=== PATIENT | female | born 1970 | race African-American/Black ===

== ENCOUNTER 2019-02-17 22:21 | Emergency (ER) | payer OTHER ==
[~2019-02-17] VITALS: Ht 160 cm; Wt 77.6 kg
[~2019-02-17 22:21] MED LIST: ALPHAGAN P10 ML OP; AMLODIPINE BESY10 MG PO; ANALGESIC325 MG PO; ASPIRIN; AZATHIOPRINE50 MG PO; BACTRIM DS TAB1 EACH PO; CLARITIN10 MG PO; MEDROLDOSEPACK PO; PREDNISONE 20 M20 MG PO; TRUSOPT OCUMETE10 ML OP; ZANTAC 150MG T150 MG PO
[2019-02-17] MEDS ORDERED: NAPROSYN500 MG PO (23:55)
[2019-02-18 00:23] VITALS: BP 145/82
== END 2019-02-18 00:24 | disposition home or self-care (01) ==
LOC: ER 22:21
DX: G57.01 Lesion of sciatic nerve, right lower limb (principal); R20.2 Paresthesia of skin; I10 Essential (primary) hypertension; Z88.8 Allergy status to other drugs, medicaments and biological substances

== ENCOUNTER 2019-06-16 16:17 | Emergency (ER) | payer OTHER ==
[~2019-06-16] VITALS: Ht 157.5 cm; Wt 80.7 kg
[~2019-06-16 16:17] MED LIST changes: +NAPROSYN500 MG PO
[2019-06-16 17:09] LABS: ABSOLUTE NEUTROPHILS 1.9 thou/uL (1.4-8.2); EOSINOPHILS 2.3 % (0.0-3.0); HEMATOCRIT 37.5 % (37.0-47.0); HEMOGLOBIN 12.3 gm/dL (12.0-15.0); LYMPHOCYTES 45.5 % (24.0-44.0); MCH 30.8 pg (26.0-34.0); MCHC 32.9 g/dL (28.0-37.0); MCV 93.6 fL (80.0-100.0); MONOCYTES 11.8 % (1.0-8.0); PLATELET COUNT 272 thou/uL (150-400); POLYS 39.4 % (36.0-66.0); RBC 4.01 mil/uL (4.20-5.00); RDW 15.3 % (10.5-14.5); WBC 4.9 thou/uL (4.0-11.0)
[2019-06-16] MEDS ORDERED: LOTEMAX5 ML OPHTHALMIC (17:22)
[2019-06-16 17:24] LABS: CALCIUM 8.9 mg/dL (8.5-10.1); CREATININE 1.3 mg/dL (0.6-1.0); POTASSIUM 4.2 mmol/L (3.5-5.1)
[2019-06-16 17:29] LABS: ALBUMIN 3.6 g/dL (3.4-5.0); TOTAL BILIRUBIN 0.3 mg/dL (<0.1-1.0); TOTAL PROTEIN 7.7 g/dL (6.4-8.2)
[2019-06-16 18:10] VITALS: BP 181/102
[2019-06-16] MEDS ORDERED: NORVASC10 MG PO (18:11)
== END 2019-06-16 18:10 | disposition home or self-care (01) ==
LOC: ER 16:17
PROVIDERS: Nurse Practitioner Family
DX: R51 Headache (principal); I10 Essential (primary) hypertension; Z76.0 Encounter for issue of repeat prescription; Z98.890 Other specified postprocedural states; Z88.2 Allergy status to sulfonamides; Z91.041 Radiographic dye allergy status

== ENCOUNTER 2021-08-26 06:42 | Emergency (ER) | payer OTHER ==
[~2021-08-26] VITALS: Ht 157.5 cm; Wt 81.7 kg
[~2021-08-26 06:42] MED LIST changes: +LOTEMAX5 ML OPHTHALMIC; +NORVASC10 MG PO
[2021-08-26] MEDS ORDERED: HYDROCHLOROTHIA25 M1 PO (06:55)
[2021-08-26] MEDS ORDERED: ALPHAGAN P5 ML OPHTHALMIC (06:56)
[2021-08-26 07:31] LABS: ABSOLUTE NEUTROPHILS 3.2 thou/uL (1.4-8.2); BASOPHILS 1.3 % (0.0-2.0); EOSINOPHILS 2.3 % (0.0-3.0); HEMATOCRIT 36.5 % (37.0-47.0); HEMOGLOBIN 11.8 gm/dL (12.0-15.0); LYMPHOCYTES 46.9 % (24.0-44.0); MCH 30.4 pg (26.0-34.0); MCHC 32.2 g/dL (28.0-37.0); MCV 94.6 fL (80.0-100.0); MONOCYTES 10.1 % (1.0-8.0); PLATELET COUNT 262 thou/uL (150-400); POLYS 39.4 % (36.0-66.0); RBC 3.86 mil/uL (4.20-5.00); WBC 8.1 thou/uL (4.0-11.0)
[2021-08-26 07:35] LABS: CALCIUM 9.2 mg/dL (8.5-10.1); CREATININE 1.7 mg/dL (0.6-1.0); POTASSIUM 3.9 mmol/L (3.5-5.1)
[2021-08-26 07:45] LABS: ALBUMIN 3.9 g/dL (3.4-5.0); TOTAL BILIRUBIN 0.2 mg/dL (0.2-1.0); TOTAL PROTEIN 8.3 g/dL (6.4-8.2)
--- NOTE | 2021-08-26 08:54 | EKG ---
[address] [place] [address] ELECTROCARDIOGRAM REPORT Name: XI CHAPMAN Room #: [facility]#: [id number] Admission: 08/26/21 Attend Phys: Discharge: Date of : 72 Report #: [id number] [facility] ED Test Date: 2021-08-26 Test Time: 06:52:41 Pat Name: XI CHAPMAN Department: Room: Gender: F Logistics Operations Director: FRANKIE : 1970 Requested By: Dhaval Gonsalves Order Number: [id number] MD: Andi Sifuentes Measurements Intervals [place] Rate: 91 P: 57 VT: 182 QRS: 6 QRSD: 88 T: 38 QT: 369 QTc: 455 Interpretive Statements Sinus rhythm No significant abnormality Compared to ECG 10/14/2015 20:31:46 No significant changes Electronically Signed On 08-26-2021 8:54:28 CHIEF PROCUREMENT OFFICER by Andi Sifuentes [email or web address] <ELECTRONICALLY SIGNED> By: Andi Sifuentes MD, [facility] 08/26/21 [id number] Andi Sifuentes MD, FAC /EPI
[2021-08-26 10:10] VITALS: BP 123/74
== END 2021-08-26 09:50 | disposition home or self-care (01) ==
LOC: ER 06:42
PROVIDERS: Emergency Medicine
DX: N17.9 Acute kidney failure, unspecified (principal); R07.89 Other chest pain; I10 Essential (primary) hypertension; E78.00 Pure hypercholesterolemia, unspecified; Z98.890 Other specified postprocedural states; Z79.899 Other long term (current) drug therapy; Z79.891 Long term (current) use of opiate analgesic